=== PATIENT | male | born 1985 | race Caucasian/White ===

== ENCOUNTER 2017-01-21 08:26 | Emergency (ER) | payer MEDICAID ==
[~2017-01-21] VITALS: Ht 175.3 cm; Wt 111.1 kg
[2017-01-21 08:31] VITALS: BP_SYST 135
[2017-01-21 09:10] VITALS: BP_SYST 130
== END 2017-01-21 09:10 | disposition home or self-care (01) ==
LOC: SED 08:26
DX: J02.8 Acute pharyngitis due to other specified organisms (principal); B97.89 Other viral agents as the cause of diseases classified elsewhere
CPT/HCPCS: 99283